=== PATIENT | female | born 1955 | race American Indian/Alaskan Native ===

== ENCOUNTER 2019-10-16 15:23 | Emergency (ER) | payer MEDICAID, MEDICARE ==
--- NOTE | 2019-10-16 16:11 | XRay Report ---
Right ankle, 3 views INDICATION: Pain following fall today FINDINGS: There is an acute bimalleolar fracture seen with an oblique fracture through the lateral ma lleolus which is mildly distracted and displaced. There is also avulsion of the medial malleolus with several millimeters of distraction without significant displacement. No posterior malleolar fracture is seen. There is associated soft tissue swelling. IMPRESSION: Acute bimalleolar fracture Signer Name: Chance Oliveira MD Signed: 10/16/2019 4:07 PM Workstation Name: [id number]
[2019-10-16] MEDS ORDERED: HYDROcodone/ACETAMINOPHEN 7.5-325MG TAB PO ONE (16:43)
[2019-10-16] MEDS ORDERED: IBUPROFEN 600 MG TAB PO ONE (16:43)
--- NOTE | 2019-10-16 16:44 | Emergency Department Report ---
ED Lower Extremity HPI - General Chief Complaint: Extremity Injury, Lower Stated Complaint: ANKLE INJURY Time Seen by Provider: 10/16/19 15:55 Source: patient Mode of arrival: Stretcher Limitations: No Limitations - History of Present Illness Initial Comments: 64-year-old -Mauritian female with history of asthma, CHF, GERD hypertension and multiple sclerosis presents to the emergency room complaining of swelling to her right ankle. Patient states that she had a accidental fall last night. Patient states that she called EMS they evaluated her but did not take her ran after she told them she was having trouble walking. Patient states that her pain is a 8 out of 10. Patient reports that she is allergic to sulfur. MD Complaint: ankle injury Onset/Timin -: Last night Injury: Ankle: Right Type of Injury: unknown Place: home Severity: severe Severity scale (0 -10): 8 - Related Data Home Medications Medication Instructions Recorded Confirmed Last Taken ALPRAZolam [Xanax] 2 mg PO BID 12/03/13 12/03/13 12/02/13 Amitriptyline [Elavil] 100 mg PO QHS 12/03/13 12/03/13 12/02/13 Aspirin [Baby Aspirin] 81 mg PO QDAY 12/03/13 12/03/13 12/02/13 Clopidogrel [Plavix] 75 mg PO QDAY 12/03/13 12/03/13 12/02/13 Esomeprazole Magnesium [Nexium] 40 mg PO QDAY 12/03/13 12/03/13 12/02/13 Furosemide [Lasix] 40 mg PO DAILY 12/03/13 12/03/13 12/02/13 Hydroxyzine HCl [hydrOXYzine] 50 mg PO TID 12/03/13 12/03/13 12/02/13 Oxycodone HCl [Roxicodone] 30 mg PO Q6H PRN 12/03/13 12/03/13 12/02/13 Pravastatin [Pravachol] 40 mg PO QHS 12/03/13 12/03/13 12/02/13 Tizanidine HCl [Zanaflex] 4 mg PO TID PRN 12/03/13 12/03/13 12/02/13 hydroCHLOROthiazide [Hctz] 25 mg PO QDAY 12/03/13 12/03/13 12/02/13 Previous Rx's Medication Instructions Recorded Last Taken Type HYDROcodone/APAP 5-325 [Cl[place]wood 1 each PO Q6HR PRN #14 tablet 12/03/13 Unknown Rx 5/325] Naproxen [Naprosyn] 375 mg PO BID PRN #20 tablet 12/03/13 Unknown Rx HYDROcodone/APAP 7.5-325 [[place] 1 each PO Q6HR PRN #12 tablet 10/16/19 Unknown Rx 7.5-325 mg TAB] Ibuprofen [Motrin 600 MG tab] 600 mg PO Q8H PRN #30 tablet 10/16/19 Unknown Rx Allergies Allergy/AdvReac Type Severity Reaction Status Date / Time Sulfa (Sulfonamide Allergy Shortness Verified 12/03/13 01:06 Antibiotics) of Breath ED Review of Systems ROS: Stated complaint: ANKLE INJURY Other details as noted in HPI ED Past Medical Hx - Past Medical History Previous Medical History?: Yes Hx Hypertension: Yes Hx Congestive Heart Failure: Yes Hx GERD: Yes Hx Asthma: Yes Additional medical history: Multiple Sclerosis - Surgical History Past Surgical History?: Yes Hx Appendectomy: Yes Additional Surgical History: hysterectomy - Social History Smoking Status: Former Smoker Substance Use Type: None - Medications Home Medications: Home Medications Medication Instructions Recorded Confirmed Last Taken Type ALPRAZolam [Xanax] 2 mg PO BID 12/03/13 12/03/13 12/02/13 History Amitriptyline [Elavil] 100 mg PO QHS 12/03/13 12/03/13 12/02/13 History Aspirin [Baby Aspirin] 81 mg PO QDAY 12/03/13 12/03/13 12/02/13 History Clopidogrel [Plavix] 75 mg PO QDAY 12/03/13 12/03/13 12/02/13 History Esomeprazole Magnesium [Nexium] 40 mg PO QDAY 12/03/13 12/03/13 12/02/13 History Furosemide [Lasix] 40 mg PO DAILY 12/03/13 12/03/13 12/02/13 History HYDROcodone/APAP 5-325 [[place] 1 each PO Q6HR PRN #14 tablet 12/03/13 Unknown Rx 5/325] Hydroxyzine HCl [hydrOXYzine] 50 mg PO TID 12/03/13 12/03/13 12/02/13 History Naproxen [Naprosyn] 375 mg PO BID PRN #20 tablet 12/03/13 Unknown Rx Oxycodone HCl [Roxicodone] 30 mg PO Q6H PRN 12/03/13 12/03/13 12/02/13 History Pravastatin [Pravachol] 40 mg PO QHS 12/03/13 12/03/13 12/02/13 History Tizanidine HCl [Zanaflex] 4 mg PO TID PRN 12/03/13 12/03/13 12/02/13 History hydroCHLOROthiazide [Hctz] 25 mg PO QDAY 12/03/13 12/03/13 12/02/13 History HYDROcodone/APAP 7.5-325 [[place] 1 each PO Q6HR PRN #12 tablet 10/16/19 Unknown Rx 7.5-325 mg TAB] Ibuprofen [Motrin 600 MG tab] 600 mg PO Q8H PRN #30 tablet 10/16/19 Unknown Rx ED Physical Exam - General Limitations: No Limitations General appearance: alert, in no apparent distress - Head Head exam: Present: atraumatic, normocephalic - Eye Eye exam: Present: normal appearance - ENT ENT exam: Present: normal exam, mucous membranes moist - Neck Neck exam: Present: full ROM - Expanded Lower Extremity Exam Right Hip exam: Present: full ROM Upper Leg exam: Present: normal inspection, full ROM Knee exam: Present: normal inspection, full ROM Lower Leg exam: Present: normal inspection, full ROM Ankle exam: Present: tenderness, swelling Foot/Toe exam: Present: swelling. Absent: tenderness Neuro vascular tendon exam: Present: no vascular compromise - Back Exam Back exam: Present: normal inspection - Neurological Exam Neurological exam: Present: alert, oriented X3 - Psychiatric Psychiatric exam: Present: normal affect, normal mood - Expanded Skin Exam Expanded Distribution of rash: RLE Description of rash: Present: blisters (2) ED Lower Extremity MDM - Radiology Data Radiology results: report reviewed Referring Physician:SUDHEER HANSONPatient Name:DORY Medellin ID:[id number] of :[id number]:FemaleAccession:[id number] Date:[id number] Status:Finalized Findings [facility] [address] [place] [address] XRay Report Signed Patient: DORY MARTINES MR#: [id number] 24 : 1955 Acct:[id number] Age/Sex: 64 / F ADM Date: 10/16/19 Loc: ED Attending Dr: Ordering Physician: SUDHEER HANSON MD Date of Service: 10/16/19 Procedure(s): XR ankle 3+V RT Accession Number(s): [id number] cc: SUDHEER HANSON MD Fluoro Time In Minutes: Right ankle, 3 views INDICATION: Pain following fall today FINDINGS: There is an acute bimalleolar fracture seen with an oblique fracture through the lateral malleolus which is mildly distracted and displaced. There is also avulsion of the medial malleolus with several millimeters of distraction without significant displacement. No posterior malleolar fracture is seen. There is associated soft tissue swelling. IMPRESSION: Acute bimalleolar fracture Signer Name: Chance Oliveira MD Signed: 10/16/2019 4:07 PM Workstation Name: [id number] Transcribed By: MARISEL Dictated By: Chance Oliveira MD Electronically Authenticated By: Chance Oliveira MD Signed Date/Time: 10/16/19 160 DD/ 05 TD/TT: - Medical Decision Making 64-year-old -Mauritian female with history of asthma, CHF, GERD hypertension and multiple sclerosis presents to the emergency room complaining of swelling to her right ankle. Patient states that she had a accidental fall last night. Patient states that she called EMS they evaluated her but did not take her ran after she told them she was having trouble walking. Patient states that her pain is a 8 out of 10. Patient reports that she is allergic to sulfur. Patient's x-ray shows she has by bimalleolus fracture of her right ankle. Patient be given Clintwood 7.5 mg p.o. for pain management. Patient be placed in a [place] splint and crutches. Patient is to follow-up with Dr. Beck orthopedic provider. Patient be discharged home on Clintwood and ibuprofen. Critical care attestation.: If time is entered above; I have spent that time in minutes in the direct care of this critically ill patient, excluding procedure time. ED Disposition Clinical Impression: Bimalleolar fracture of right ankle Disposition: DC-01 TO HOME OR SELFCARE Is pt being admited?: No Does the pt Need Aspirin: No Condition: Stable Instructions: Ankle Fracture (ED) Additional Instructions: X-ray shows that you have a fracture to your right ankle and 2 spaces. It is very important for you to follow-up with orthopedic provider I have listed 1 below. You can take pain medication as needed but do not operate heavy machinery while taking Clint[place]. Take ibuprofen as well for pain management. Prescriptions: Ibuprofen [Motrin 600 MG tab] 600 mg PO Q8H PRN #30 tablet PRN Reason: Pain , Severe (7-10) HYDROcodone/APAP 7.5-325 [Clintwood 7.5-325 mg TAB] 1 each PO Q6HR PRN #12 tablet PRN Reason: Pain , Severe (7-10) Referrals: JEMAL BECK MD [Staff Physician] - 3-5 Days
[2019-10-16 17:44] VITALS: BP 135/60
== END 2019-10-16 17:52 | disposition home or self-care (01) ==
LOC: ED 15:23
DX: S82.841A Displaced bimalleolar fracture of right lower leg, initial encounter for closed fracture (principal); I11.0 Hypertensive heart disease with heart failure; I50.9 Heart failure, unspecified; K21.9 Gastro-esophageal reflux disease without esophagitis; J45.909 Unspecified asthma, uncomplicated; Z90.49 Acquired absence of other specified parts of digestive tract; Z88.2 Allergy status to sulfonamides; Z79.899 Other long term (current) drug therapy; Z90.710 Acquired absence of both cervix and uterus; Z87.891 Personal history of nicotine dependence; W18.30XA Fall on same level, unspecified, initial encounter; Y93.89 Activity, other specified; Y92.89 Other specified places as the place of occurrence of the external cause; Y99.8 Other external cause status

== ENCOUNTER 2020-12-29 10:16 | Emergency (ER) | payer MEDICARE ==
[2020-12-29 10:44] VITALS: BP 133/79
== END 2020-12-29 13:20 | disposition home or self-care (01) ==
LOC: ED 10:16
DX: N39.0 Urinary tract infection, site not specified (principal); I11.0 Hypertensive heart disease with heart failure; I50.9 Heart failure, unspecified; K21.9 Gastro-esophageal reflux disease without esophagitis; J45.909 Unspecified asthma, uncomplicated; F12.90 Cannabis use, unspecified, uncomplicated; Z90.710 Acquired absence of both cervix and uterus; Z90.49 Acquired absence of other specified parts of digestive tract; Z87.891 Personal history of nicotine dependence; Z88.2 Allergy status to sulfonamides; Z79.899 Other long term (current) drug therapy; Z79.82 Long term (current) use of aspirin
CPT/HCPCS: 81001; 87076; 87086; 87186; 99283

== ENCOUNTER 2021-05-09 16:25 | Emergency (ER) | payer MEDICARE ==
--- NOTE | 2021-05-09 19:08 | XRay Report ---
LEFT ANKLE 3 VIEW(S) INDICATION / CLINICAL INFORMATION: left ankle pain, trauma COMPARISON: None available. FINDINGS: BONES / JOINT(S): Acute Doan type B fracture of distal fibula. Acute mildly displaced medial malleol us fracture. No significant arthritis. SOFT TISSUES: Moderate diffuse soft tissue swelling. ADDITIONAL FINDINGS: None. Signer Name: Chon Ontiveros MD Signed: 05/09/2021 7:04 PM Workstation Name: [id number]
--- NOTE | 2021-05-09 20:27 | XRay Report ---
RIGHT TIBIA-FIBULA 2 VIEW(S) INDICATION / CLINICAL INFORMATION: trauma right leg pain COMPARISON: Right ankle x-ray 12/14/2019 FINDINGS: BONES / JOINT(S): Old healed distal fibular fracture. Stable old nonunited fracture of medial malleol us. No acute fracture of right tibia or fibula No significant arthritis. SOFT TISSUES: No significant abnormality. ADDITIONAL FINDINGS: None. Signer Name: Chon Ontiveros MD Signed: 05/09/2021 8:22 PM Workstation Name: [email or web address] [id number]
--- NOTE | 2021-05-09 20:28 | XRay Report ---
RIGHT ANKLE 3 VIEW(S) INDICATION / CLINICAL INFORMATION: trauma right ankle pain COMPARISON: Right ankle x-ray 12/14/2019 FINDINGS: BONES / JOINT(S): Old nonunited fracture of medial malleolus. Old healed fracture deformity of right distal fibula. No significant arthritis. SOFT TISSUES: Moderate soft tissue swelling along anterolateral aspect of distal foreleg ADDITIONAL FINDINGS: None. Signer Name: Chon Ontiveros MD Signed: 05/09/2021 8:23 PM Workstation Name: [id number]
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
[2021-05-09 22:03] VITALS: BP 159/79
[2021-05-09] MEDS ORDERED: oxyCODONE /ACETAMINOPHEN 5-325MG TAB PO ONE (22:29)
== END 2021-05-10 10:33 | disposition home or self-care (01) ==
LOC: ED 16:25
DX: S82.832A Other fracture of upper and lower end of left fibula, initial encounter for closed fracture (principal); S82.52XA Displaced fracture of medial malleolus of left tibia, initial encounter for closed fracture; J45.909 Unspecified asthma, uncomplicated; Z87.891 Personal history of nicotine dependence; F12.90 Cannabis use, unspecified, uncomplicated; I10 Essential (primary) hypertension; V03.99XA Pedestrian with other conveyance injured in collision with car, pick-up truck or van, unspecified whether traffic or nontraffic accident, initial encounter; Y93.89 Activity, other specified; Y92.89 Other specified places as the place of occurrence of the external cause; Y99.8 Other external cause status
CPT/HCPCS: 99284